=== PATIENT | female | born 1965 | race Caucasian/White ===

== ENCOUNTER 2021-12-20 16:37 | Emergency (ER) | payer OTHER ==
[2021-12-20] MEDS ORDERED: MORPHINE SULFATE 4 MG INJ IM ONE ×2 (16:59→17:28)
[2021-12-20] MEDS ORDERED: MORPHINE SULFATE 4 MG INJ ONE ×2 (17:10→17:34)
--- NOTE | 2021-12-20 18:12 | ERPHSYRPT ---
- History of Present Illness Time Seen by Provider: 12/20/21 16:58 Source: patient, family Exam Limitations: no limitations Patient Subjective Stated Complaint: Pt fell into the gas grill injuring her left upper arm Triage Nursing Assessment: Pt brought to the ER by her friend, tushar wnl, rates pain 10/10, unable to lift left arm, pain in the upper arm, no pain in shoulder or elbow, denies hitting head or LOC, denies N&V, very diaphoretic upon arrival, pulses normal, cap refill normal, left upper arm appears swollen, no bruising noted Physician History: 55 years old female presented in the ER with chief complaint of left shoulder/arm pain after she accidentally fell , tripped on a metal cable onto [employer] grill and then on the ground hitting a rock against the arm and put all her weight on left shoulder/arm prior to arrival. Since then she is having sharp shooting severe pain, exacerbated with minimal movements at arm, better with being still. No pain in the right elbow/wrist/hand and no difficulty movements of elbow/hand/wrist. No injury anywhere else. Occurred: just prior to arrival Method of Injury: fell Quality: sharpness Severity of Pain-Max: severe Severity of Pain-Current: severe Extremities Pain Location: shoulder: left, arm: left Modifying Factors: Improves With: immobilization. Worsens With: movement Associated Symptoms: none Allergies/Adverse Reactions: No Known Drug Allergies Allergy (Verified 12/20/21 17:05) Travel Risk - International Travel Have you traveled outside of the country in past 3 weeks: No - Coronavirus Screening Are you exhibiting any of the following symptoms?: No Close contact with a COVID-19 positive Pt in past 14-21 Days: No - Vaccine Status Have you recieved a Covid-19 vaccination: No - Review of Systems Constitutional: No Symptoms Eyes: No Symptoms Ears, Nose, & Throat: No Symptoms Respiratory: No Symptoms Cardiac: No Symptoms Abdominal/Gastrointestinal: No Symptoms Genitourinary Symptoms: No Symptoms Musculoskeletal: Fall, Injury, Joint Pain Skin: No Symptoms Neurological: No Symptoms Psychological: No Symptoms Endocrine: No Symptoms Hematologic/Lymphatic: No Symptoms - Past Medical History Pertinent Past Medical History: Yes Cardiac History: High Cholesterol, Hypertension - Past Surgical History Past Surgical History: Yes Other Surgical History: cone biopsy - Social History Smoking Status: Never smoker Exposure to second hand smoke: Yes Drug Use: marijuana Patient Lives Alone: No - Nursing Vital Signs Nursing Vital Signs: Initial Vital Signs Temperature 97.9 F 12/20/21 16:53 Pulse Rate 61 12/20/21 16:53 Blood Pressure 120/72 12/20/21 16:53 O2 Sat by Pulse Oximetry 100 12/20/21 16:53 Pain Scale Pain Intensity 8 - Physical Exam General Appearance: no apparent distress, alert Eyes, Ears, Nose, Throat Exam: normal ENT inspection Neck Exam: normal inspection, supple, carotid bruit Cardiovascular/Respiratory Exam: chest non-tender, normal breath sounds, regular rate/rhythm Abdominal Exam: non-tender, soft Back Exam: normal inspection, normal range of motion, No CVA tenderness, No vertebral tenderness Shoulder Exam: normal inspection, limited ROM (Left), pain, soft tissue tenderness, swelling (Upper shoulder/mid arm) Elbow/Forearm Exam: normal inspection, non-tender, no evidence of injury, normal ROM Wrist Exam: normal inspection, non-tender, no evidence of injury Hand Exam: normal inspection, non-tender, no evidence of injury Neuro/Tendon Exam: normal sensation, normal motor functions Mental Status Exam: alert, oriented x 3, cooperative Skin Exam: normal color SpO2 Interpretation: normal SpO2: 96 O2 Delivery: Room Air Ordered Tests: Active Orders 24 hr Category Date Time Status CHEST 1 VIEW (PORTABLE) Stat Exams 12/20/21 17:46 Taken HUMERUS Stat Exams 12/20/21 18:21 Taken Medication Summary Discontinued Medications Generic Name Dose Route Start Last Admin Trade Name Shannan PRN Reason Stop Dose Admin Morphine Sulfate 4 mg 12/20/21 16:59 12/20/21 17:12 Morphine Sulfate 4 Mg/Ml Injection IM 12/20/21 17:00 4 mg STAT ONE Administration Morphine Sulfate Confirm 12/20/21 17:10 Morphine Sulfate 4 Mg/Ml Injection Administered 12/20/21 17:11 Dose 4 mg .ROUTE .STK-MED ONE Morphine Sulfate 4 mg 12/20/21 17:28 12/20/21 17:40 Morphine Sulfate 4 Mg/Ml Injection IM 12/20/21 17:29 4 mg STAT ONE Administration Morphine Sulfate Confirm 12/20/21 17:34 Morphine Sulfate 4 Mg/Ml Injection Administered 12/20/21 17:35 Dose 4 mg .ROUTE .STK-MED ONE - Progress Progress: improved, pain not gone completely Progress Note: 12/20/21 19:50 Given symptomatic treatment for pain. X-rays showed comminuted displaced fracture neck of left humerus with intact distal neurovascular. It was a clear mechanical fall, no injury anywhere else, do not think needs any other imaging and is discussed with Dr. Jackman at [facility], recommended sling application, pain medication and outpatient follow-up with bone and joint clinic Wednesday. Counseled pt/family regarding: diagnosis, need for follow-up, rad results - Departure Departure Disposition: Home Clinical Impression: Humerus surgical neck fracture Condition: Stable Critical Care Time: No Referrals: DOCTOR,NO FAMILY [Primary Care Provider] - Follow up/PCP as directed DAVID YOON MD [COURTESY STAFF] - Follow up/PCP as directed (In 2 days for reevaluation) Instructions: Upper Arm Fracture Additional Instructions: Keep sling on all the time. Take pain medications only as needed. Follow-up with the pediatric bone [facility] joint clinic at [facility] Wednesday. Return to ER for intractable pain, difficulty movements at wrist/elbow, numbness tingling weakness etc. or if having pain anywhere else. Prescriptions: Hydrocodone/Acetaminophen [Hydrocodone-Acetamin 7.5-325] 1 each PO Q6HPRN PRN 3 Days #12 tablet MDD 4 PRN Reason: Pain
[2021-12-20] MEDS ORDERED: HYDROCODONE-ACETAMIN 10-325 MG PO PRN (19:49)
[2021-12-20] MEDS ORDERED: HYDROCODONE-ACETAMIN 10-325 MG PO STA (19:49)
[2021-12-20 19:58] VITALS: BP 109/63; PULSE 57; O2SAT 97
--- NOTE | 2021-12-20 20:43 | XRAY ---
Indication: Pain following fall. Comparison: None Portable chest demonstrates normal heart and lungs. Bony thorax intact with mild osteopenia and degenerative changes.
--- NOTE | 2021-12-20 20:45 | XRAY ---
Indication: Pain following fall. Comparison: None 2 view left humerus demonstrates comminuted, displaced, and angulated humeral head/neck fracture with soft tissue swelling. Osteopenia and mild acromioclavicular degenerative arthropathy. Comment: Preliminary interpretation made by [facility]. No critical discrepancy.
== END 2021-12-20 20:06 | disposition home or self-care (01) ==
LOC: ED 16:37
DX: S42.212A Unspecified displaced fracture of surgical neck of left humerus, initial encounter for closed fracture (principal); W01.198A Fall on same level from slipping, tripping and stumbling with subsequent striking against other object, initial encounter; M25.512 Pain in left shoulder; E78.5 Hyperlipidemia, unspecified; I10 Essential (primary) hypertension; Z79.891 Long term (current) use of opiate analgesic
CPT/HCPCS: 71045; 73060; 96372; 99284; J2270; A9270-GY